=== PATIENT | male | born 1960 | race Caucasian/White ===

== ENCOUNTER → 2023-03-21 11:39 | Outpatient (REF) | payer OTHER, SELFPAY ==
[2023-03-21 12:19] LABS: % Basophils 4.6 % (0-2); % Eosinophils 2.7 % (0-6); % Immature Granulocytes 1.4 % (0-0.5); % Lymphocytes 19.3 % (20.5-51.1); % Monocytes 7.6 % (1.7-9.3); % Neutrophils 64.4 % (42.2-75.2); Absolute Basophils 0.2 10^3/uL (0-0.2); Absolute Eosinophils 0.1 10^3/uL (0-0.7); Absolute Immature Granulocytes 0.1 10^3/uL (0-0.05); Absolute Lymphocytes 0.7 10^3/uL (1.2-3.4); Absolute Monocytes 0.3 10^3/uL (0.1-0.6); Absolute Neutrophils 2.4 10^3/uL (1.4-6.5); Hematocrit 37.7 % (39.0-52.0); Mean Corp Hgb Conc. 37.1 g/dL (33.0-37.0); Mean Corpuscular Hgb 34.8 pg (27.0-31.0); Mean Corpuscular Volume 93.8 fL (80.0-94.0); Mean Platelet Volume 8.4 fL (7.4-10.4); Nucleated Red Blood Cells % 0 % (-); Platelet Count 184 10^3/uL (130-400); Red Blood Cell Count 4.02 10^6/uL (4.70-6.10); White Blood Cell Count 3.7 10^3/uL (4.8-10.8)
[2023-03-21 12:52] LABS: ALT (SGPT) 28 U/L (0-50); AST (SGOT) 31 U/L (17-59); Alkaline Phosphatase 81 U/L (38-126); Blood Urea Nitrogen 13 mg/dl (9-20); Calcium 9.5 mg/dl (8.4-10.2); Carbon Dioxide 28 mmol/L (22-30); Chloride 101 mmol/L (98-107); Glucose 122 mg/dl (70-99); Potassium 3.7 mmol/L (3.5-5.1); Sodium 137 mmol/L (135-145); Total Bilirubin 0.7 mg/dl (0.2-1.3); Total Protein 6.2 g/dl (6.3-8.2); eGFR > 60.00
[2023-03-23 01:36] LABS: IgG 816 mg/dl (700-1600)
[2023-03-23 02:41] LABS: IgA < 50 mg/dl (70-400); IgM < 25 mg/dl (40-230)
== END ==
LOC: REG 11:39
PROVIDERS: ATTENDING PHYSICIAN Internal Medicine; REFERRING PHYSICIAN Internal Medicine Hematology & Oncology
DX: B44.9 Aspergillosis, unspecified (principal); C82.98 Follicular lymphoma, unspecified, lymph nodes of multiple sites; D70.9 Neutropenia, unspecified; D83.8 Other common variable immunodeficiencies
CPT/HCPCS: 36415; 80053; 82784; 85025

== ENCOUNTER → 2023-04-18 11:27 | Outpatient (REF) | payer OTHER, SELFPAY ==
[2023-04-18 12:14] LABS: % Basophils 3.9 % (0-2); % Eosinophils 2.2 % (0-6); % Immature Granulocytes 1.7 % (0-0.5); % Lymphocytes 17.9 % (20.5-51.1); % Monocytes 8.1 % (1.7-9.3); % Neutrophils 66.2 % (42.2-75.2); Absolute Basophils 0.2 10^3/uL (0-0.2); Absolute Eosinophils 0.1 10^3/uL (0-0.7); Absolute Immature Granulocytes 0.1 10^3/uL (0-0.05); Absolute Lymphocytes 0.7 10^3/uL (1.2-3.4); Absolute Monocytes 0.3 10^3/uL (0.1-0.6); Absolute Neutrophils 2.7 10^3/uL (1.4-6.5); Hematocrit 36.8 % (39.0-52.0); Hemoglobin 13.6 g/dL (13.0-18.0); Mean Corpuscular Hgb 34.4 pg (27.0-31.0); Mean Corpuscular Volume 93.2 fL (80.0-94.0); Mean Platelet Volume 7.8 fL (7.4-10.4); Nucleated Red Blood Cells % 0 % (-); Platelet Count 169 10^3/uL (130-400); Red Blood Cell Count 3.95 10^6/uL (4.70-6.10); Red Cell Dist. Width 14.5 % (11.5-14.5); White Blood Cell Count 4.1 10^3/uL (4.8-10.8)
[2023-04-18 12:33] LABS: ALT (SGPT) 37 U/L (0-50); AST (SGOT) 32 U/L (17-59); Albumin 4.5 g/dl (3.5-5.0); Alkaline Phosphatase 91 U/L (38-126); Blood Urea Nitrogen 13 mg/dl (9-20); Calcium 9.4 mg/dl (8.4-10.2); Carbon Dioxide 25 mmol/L (22-30); Chloride 104 mmol/L (98-107); Glucose 111 mg/dl (70-99); LDH 193 U/L (120-246); Potassium 3.4 mmol/L (3.5-5.1); Sodium 136 mmol/L (135-145); Total Bilirubin 0.9 mg/dl (0.2-1.3); Total Protein 6.7 g/dl (6.3-8.2); eGFR > 60.00
[2023-04-20 10:48] LABS: IgG 808 mg/dl (700-1600)
[2023-04-22 11:16] LABS: IgA <2 mg/dL (68-408); IgM <10 mg/dL (35-263)
== END ==
LOC: REG 11:27
PROVIDERS: ATTENDING PHYSICIAN Internal Medicine Hematology & Oncology; FAMILY PHYSICIAN Family Medicine
DX: C82.98 Follicular lymphoma, unspecified, lymph nodes of multiple sites (principal); D70.9 Neutropenia, unspecified; D83.8 Other common variable immunodeficiencies
CPT/HCPCS: 36415; 80053; 82784; 83615; 85025

== ENCOUNTER → 2023-05-19 11:34 | Outpatient (REF) | payer OTHER, SELFPAY ==
[2023-05-19 13:34] LABS: % Basophils 5.9 % (0-2); % Eosinophils 4.4 % (0-6); % Immature Granulocytes 1.2 % (0-0.5); % Lymphocytes 21.1 % (20.5-51.1); % Monocytes 6.7 % (1.7-9.3); % Neutrophils 60.7 % (42.2-75.2); Absolute Basophils 0.2 10^3/uL (0-0.2); Absolute Eosinophils 0.2 10^3/uL (0-0.7); Absolute Lymphocytes 0.7 10^3/uL (1.2-3.4); Absolute Monocytes 0.2 10^3/uL (0.1-0.6); Absolute Neutrophils 2.1 10^3/uL (1.4-6.5); Hematocrit 34.8 % (39.0-52.0); Hemoglobin 12.9 g/dL (13.0-18.0); Mean Corp Hgb Conc. 37.1 g/dL (33.0-37.0); Mean Corpuscular Hgb 35.1 pg (27.0-31.0); Mean Corpuscular Volume 94.6 fL (80.0-94.0); Mean Platelet Volume 8.5 fL (7.4-10.4); Nucleated Red Blood Cells % 0 % (-); Platelet Count 195 10^3/uL (130-400); Red Blood Cell Count 3.68 10^6/uL (4.70-6.10); Red Cell Dist. Width 15.3 % (11.5-14.5); White Blood Cell Count 3.4 10^3/uL (4.8-10.8)
[2023-05-19 13:46] LABS: ALT (SGPT) 54 U/L (0-50); AST (SGOT) 100 U/L (17-59); Albumin 4.4 g/dl (3.5-5.0); Alkaline Phosphatase 264 U/L (38-126); Blood Urea Nitrogen 16 mg/dl (9-20); Calcium 9.3 mg/dl (8.4-10.2); Carbon Dioxide 17 mmol/L (22-30); Chloride 105 mmol/L (98-107); Glucose 94 mg/dl (70-99); LDH 284 U/L (120-246); Potassium 3.8 mmol/L (3.5-5.1); Sodium 135 mmol/L (135-145); Total Protein 6.6 g/dl (6.3-8.2); eGFR > 60.00
[2023-05-21 05:31] LABS: IgG 785 mg/dl (700-1600)
[2023-05-23 01:21] LABS: IgA <2 mg/dL (68-408); IgM <10 mg/dL (35-263)
== END ==
LOC: REG 11:34
PROVIDERS: ATTENDING PHYSICIAN Internal Medicine Hematology & Oncology; FAMILY PHYSICIAN Family Medicine; REFERRING PHYSICIAN Internal Medicine
DX: B49 Unspecified mycosis (principal); C82.98 Follicular lymphoma, unspecified, lymph nodes of multiple sites; D70.9 Neutropenia, unspecified; D83.8 Other common variable immunodeficiencies
CPT/HCPCS: 36415; 80053; 82784; 83615; 85025

== ENCOUNTER → 2023-06-16 12:11 | Outpatient (REF) | payer OTHER, SELFPAY ==
[2023-06-16 13:28] LABS: % Basophils 4.6 % (0-2); % Eosinophils 2.8 % (0-6); % Immature Granulocytes 0.9 % (0-0.5); % Lymphocytes 20.5 % (20.5-51.1); % Neutrophils 63.2 % (42.2-75.2); Absolute Basophils 0.2 10^3/uL (0-0.2); Absolute Eosinophils 0.1 10^3/uL (0-0.7); Absolute Lymphocytes 0.7 10^3/uL (1.2-3.4); Absolute Monocytes 0.3 10^3/uL (0.1-0.6); Absolute Neutrophils 2.1 10^3/uL (1.4-6.5); Hematocrit 37.5 % (39.0-52.0); Hemoglobin 13.1 g/dL (13.0-18.0); Mean Corp Hgb Conc. 34.9 g/dL (33.0-37.0); Mean Corpuscular Volume 100.3 fL (80.0-94.0); Mean Platelet Volume 8.3 fL (7.4-10.4); Nucleated Red Blood Cells % 0 % (-); Platelet Count 163 10^3/uL (130-400); Red Blood Cell Count 3.74 10^6/uL (4.70-6.10); Red Cell Dist. Width 13.3 % (11.5-14.5); White Blood Cell Count 3.3 10^3/uL (4.8-10.8)
[2023-06-16 14:01] LABS: ALT (SGPT) 26 U/L (0-50); AST (SGOT) 30 U/L (17-59); Albumin 4.2 g/dl (3.5-5.0); Alkaline Phosphatase 169 U/L (38-126); Blood Urea Nitrogen 17 mg/dl (9-20); Calcium 9.3 mg/dl (8.4-10.2); Carbon Dioxide 27 mmol/L (22-30); Chloride 104 mmol/L (98-107); Direct Bilirubin 0.3 mg/dl (0.0-0.4); Glucose 112 mg/dl (70-99); LDH 166 U/L (120-246); Potassium 3.5 mmol/L (3.5-5.1); Sodium 136 mmol/L (135-145); Total Bilirubin 0.5 mg/dl (0.2-1.3); Total Protein 6.4 g/dl (6.3-8.2); eGFR > 60.00
[2023-06-18 00:44] LABS: IgG 781 mg/dl (700-1600)
[2023-06-18 01:00] LABS: IgA < 50 mg/dl (70-400); IgM < 25 mg/dl (40-230)
== END ==
LOC: REG 12:11
PROVIDERS: ATTENDING PHYSICIAN Internal Medicine Hematology & Oncology; FAMILY PHYSICIAN Family Medicine; REFERRING PHYSICIAN Internal Medicine
DX: C82.98 Follicular lymphoma, unspecified, lymph nodes of multiple sites (principal); D70.9 Neutropenia, unspecified; D83.8 Other common variable immunodeficiencies
CPT/HCPCS: 36415; 80053; 82248; 82784; 83615; 85025

== ENCOUNTER → 2023-08-05 12:14 | Outpatient (REF) | payer OTHER, SELFPAY | LOC: RAD 12:14 | PROVIDERS: ATTENDING PHYSICIAN Surgery; FAMILY PHYSICIAN Family Medicine | DX: B49 Unspecified mycosis (principal); B44.0 Invasive pulmonary aspergillosis | CPT/HCPCS: 71250; 93005 ==

== ENCOUNTER → 2023-08-12 12:04 | Outpatient (REF) | payer OTHER, SELFPAY ==
[2023-08-12 13:28] LABS: % Basophils 3.4 % (0-2); % Lymphocytes 15.6 % (20.5-51.1); Absolute Basophils 0.1 10^3/uL (0-0.2); Absolute Eosinophils 0.1 10^3/uL (0-0.7); Absolute Lymphocytes 0.6 10^3/uL (1.2-3.4); Absolute Monocytes 0.4 10^3/uL (0.1-0.6); Absolute Neutrophils 2.8 10^3/uL (1.4-6.5); Hematocrit 37.8 % (39.0-52.0); Hemoglobin 13.6 g/dL (13.0-18.0); Mean Corpuscular Hgb 33.6 pg (27.0-31.0); Mean Corpuscular Volume 93.3 fL (80.0-94.0); Mean Platelet Volume 8.2 fL (7.4-10.4); Nucleated Red Blood Cells % 0 % (-); Platelet Count 165 10^3/uL (130-400); Red Blood Cell Count 4.05 10^6/uL (4.70-6.10); Red Cell Dist. Width 13.3 % (11.5-14.5); White Blood Cell Count 4.1 10^3/uL (4.8-10.8)
[2023-08-12 14:01] LABS: ALT (SGPT) 17 U/L (0-50); AST (SGOT) 26 U/L (17-59); Albumin 4.4 g/dl (3.5-5.0); Alkaline Phosphatase 181 U/L (38-126); Blood Urea Nitrogen 15 mg/dl (9-20); Calcium 9.4 mg/dl (8.4-10.2); Carbon Dioxide 27 mmol/L (22-30); Chloride 102 mmol/L (98-107); Glucose 107 mg/dl (70-99); LDH 163 U/L (120-246); Potassium 3.5 mmol/L (3.5-5.1); Sodium 137 mmol/L (135-145); Total Protein 6.6 g/dl (6.3-8.2); eGFR > 60.00
[2023-08-13 05:25] LABS: IgG 805 mg/dl (700-1600)
[2023-08-14 14:27] LABS: IgA <2 mg/dL (68-408); IgM 11 mg/dL (35-263)
== END ==
LOC: REG 12:04
PROVIDERS: ATTENDING PHYSICIAN Internal Medicine Hematology & Oncology; FAMILY PHYSICIAN Family Medicine
DX: C82.98 Follicular lymphoma, unspecified, lymph nodes of multiple sites (principal); D70.9 Neutropenia, unspecified; D83.8 Other common variable immunodeficiencies
CPT/HCPCS: 36415; 80053; 82784; 83615; 85025

== ENCOUNTER → 2023-09-09 12:19 | Outpatient (REF) | payer OTHER, SELFPAY ==
[2023-09-09 13:42] LABS: ALT (SGPT) 17 U/L (0-50); AST (SGOT) 23 U/L (17-59); Albumin 4.2 g/dl (3.5-5.0); Alkaline Phosphatase 110 U/L (38-126); Blood Urea Nitrogen 16 mg/dl (9-20); Calcium 9.2 mg/dl (8.4-10.2); Carbon Dioxide 26 mmol/L (22-30); Chloride 103 mmol/L (98-107); Glucose 117 mg/dl (70-99); LDH 158 U/L (120-246); Potassium 3.3 mmol/L (3.5-5.1); Sodium 138 mmol/L (135-145); Total Bilirubin 0.9 mg/dl (0.2-1.3); Total Protein 6.2 g/dl (6.3-8.2); eGFR > 60.00
[2023-09-09 13:45] LABS: % Basophils 3.1 % (0-2); % Eosinophils 2.8 % (0-6); % Immature Granulocytes 0.6 % (0-0.5); % Lymphocytes 17.8 % (20.5-51.1); % Monocytes 7.4 % (1.7-9.3); % Neutrophils 68.3 % (42.2-75.2); Absolute Basophils 0.1 10^3/uL (0-0.2); Absolute Eosinophils 0.1 10^3/uL (0-0.7); Absolute Lymphocytes 0.6 10^3/uL (1.2-3.4); Absolute Monocytes 0.2 10^3/uL (0.1-0.6); Absolute Neutrophils 2.2 10^3/uL (1.4-6.5); Hematocrit 36.9 % (39.0-52.0); Hemoglobin 13.5 g/dL (13.0-18.0); Mean Corp Hgb Conc. 36.6 g/dL (33.0-37.0); Mean Corpuscular Hgb 33.7 pg (27.0-31.0); Mean Platelet Volume 8.6 fL (7.4-10.4); Nucleated Red Blood Cells % 0 % (-); Platelet Count 146 10^3/uL (130-400); Red Blood Cell Count 4.01 10^6/uL (4.70-6.10); Red Cell Dist. Width 14.2 % (11.5-14.5); White Blood Cell Count 3.3 10^3/uL (4.8-10.8)
[2023-09-10 00:26] LABS: IgG 789 mg/dl (700-1600)
[2023-09-10 00:31] LABS: IgA < 50 mg/dl (70-400); IgM < 25 mg/dl (40-230)
== END ==
LOC: REG 12:19
PROVIDERS: ATTENDING PHYSICIAN Internal Medicine Hematology & Oncology; FAMILY PHYSICIAN Family Medicine
DX: C82.98 Follicular lymphoma, unspecified, lymph nodes of multiple sites (principal); D70.9 Neutropenia, unspecified; D83.8 Other common variable immunodeficiencies
CPT/HCPCS: 36415; 80053; 82784; 83615; 85025

== ENCOUNTER 2023-11-19 06:21 | Day surgery (SDC) | payer OTHER, SELFPAY ==
[2023-10-29 13:23] VITALS: BMI 25.4
[2023-10-29 14:50] LABS: Hemoglobin 12.9 g/dL (13.0-18.0); Mean Corp Hgb Conc. 36.9 g/dL (33.0-37.0); Mean Corpuscular Hgb 34.8 pg (27.0-31.0); Mean Corpuscular Volume 94.3 fL (80.0-94.0); Mean Platelet Volume 8.2 fL (7.4-10.4); Platelet Count 132 10^3/uL (130-400); Red Blood Cell Count 3.71 10^6/uL (4.70-6.10); Red Cell Dist. Width 15.2 % (11.5-14.5); White Blood Cell Count 2.8 10^3/uL (4.8-10.8)
[2023-10-29 15:03] LABS: ALT (SGPT) 28 U/L (0-50); AST (SGOT) 30 U/L (17-59); Albumin 4.2 g/dl (3.5-5.0); Alkaline Phosphatase 92 U/L (38-126); Blood Urea Nitrogen 11 mg/dl (9-20); Calcium 9.3 mg/dl (8.4-10.2); Carbon Dioxide 26 mmol/L (22-30); Chloride 102 mmol/L (98-107); Estimated Creatinine Clearance 79 ml/min; Glucose 103 mg/dl (70-99); Potassium 3.6 mmol/L (3.5-5.1); Sodium 139 mmol/L (135-145); Total Bilirubin 0.8 mg/dl (0.2-1.3); Total Protein 6.5 g/dl (6.3-8.2); eGFR > 60.00
[2023-10-30 09:40] LABS: Glycohemoglobin (HgbA1c) 4.5 % (4.0-5.6)
--- NOTE | 2023-11-06 12:47 | VNURNOTE ---
Patient is scheduled for an elective L LAKEISHA 11/19/23- he is a same day patient. Spoke with patient prior to surgery. Introduced role of [facility] liaison.
Patient reports that he lives with significant other in a 1 story home.
There are 2 steps to enter.
DME he has: cane, raised toilet seat
DME he's ordering: hip kit, rolling walker, DVT machine
He currently uses a single point cane.
PCP is Harriet Root
Discussed orthopedic program and post surgical plans.
Patient declining [facility]. He has outpt PT at [facility] scheduled Mon 11/22. Offered [facility] PT, SN visits per joint protocol. Patient declined stating he has done exercises before and feels he can do on his own until outpt PT starts.
Significant other Shari will be home with him and can help.
After call, liaison spoke with Zabrina Santos at Ortho, made aware of pt declining home PT, SN.
Plan: Outpt PT
[2023-11-16 11:55] VITALS: BMI 25.4
--- NOTE | 2023-11-16 12:00 | PTCARENOTE ---
Zabrina in Dr. Lopez's office made aware of WBC's 2.8 from 10/29/23.
[2023-11-19] VITALS (12 sets, daily range): BP systolic 107–138; BP diastolic 56–95; BMI 25.4
[2023-11-19] MEDS: NORMOSOL-R/PLASMALYTE-A 1000 IV (11:43)
[2023-11-19] MEDS: CELEBREX 200 MG PO (11:43)
[2023-11-19] MEDS: TYLENOL 650 MG PO (11:43)
[2023-11-19] MEDS: ANCEF 5 IV (17:31)
--- NOTE | 2023-11-19 17:55 | OR.RPT ---
Operative Report
Operative Report
Orthopaedic Surgery Operative Note
DATE OF OPERATION: 11/19/2023
PREOPERATIVE DIAGNOSES: Osteoarthritis, left hip
POSTOPERATIVE DIAGNOSES: Same
OPERATION PERFORMED: Left total hip arthroplasty.
SURGEON: Christiano Lopez MD
TEXTILE SCIENCE TECHNICIAN: Lencho Garnica PA-C who helped with patient and limb positioning and retraction
ANESTHESIA: Spinal
COMPLICATIONS: None.
ESTIMATED BLOOD LOSS: 50 mL.
DRAINS: None
SPECIMEN: None
FINDINGS: Advanced articular cartilage wear on the femoral head and acetabulum. Extensive osteophytes on femoral head and acetabulum
IMPLANTS:
Ghanshyam Trilogy Acetabular Shell, cluster hole, size 56
Ghanshyam Trilogy Highly Crosslinked PE Liner, neutral
Ghanshyam M/L Taper femoral stem, size 11 with standard neck length and standard offset
Biolox Ceramic Head, size 36mm +0
INDICATIONS: The patient presented to my office with debilitating left hip pain due to osteoarthritis. We reviewed the natural history of this problem, as well as the risks, benefits, and alternatives of various treatment options. The patient
exhausted all nonoperative treatment options and wished to proceed with hip replacement surgery. The patient understood the risks which included, but were not limited to, bleeding, infection, failure to relieve pain, more pain than preop, damage to
blood vessels and nerves, need for reoperation, mechanical failure of the implants, wound healing problems, stiffness, instability, blood clot, pulmonary embolism, myocardial infarction, pneumonia, arrhythmia, CVA, and . The patient accepted
these risks and wished to proceed. All questions were answered, and informed consent was obtained.
PROCEDURE IN DETAIL: The patient was identified in the preoperative holding area. The left hip was identified as the operative site. The patient was taken in the operating room and transferred to the operative table. Spinal anesthesia was performed.
IV antibiotics and tranexamic acid were administered. The patient was placed in the lateral position with Stulberg hip positioners. Axillary roll was placed. The down leg was well padded. All bony prominences were well padded. The operative limb was
prepped and draped in the usual sterile fashion.
Time out was performed. A posterolateral approach to the hip was used. The skin incision was centered over the greater trochanter. This was taken down sharply through subcutaneous tissues. Meticulous hemostasis was achieved throughout the case with
electrocautery. We split the fascia real in line with skin incision. I split the gluteus jimbo bluntly. We cauterized all crossing vessels as we split it. I palpated the sciatic nerve and made sure it was well posterior in the operative field. It
was protected throughout the case.
I performed a partial bursectomy to identify the short external rotators. The gluteus medius and minimus were identified and retracted anteriorly. I incised the piriformis tendon and conjoint tendon at their insertions. These were tagged for later
repair. I then performed a trapezoidal capsulotomy. The edges were tagged for later repair. I referenced the cut edge of the capsular flap to 2 fixed points on the greater trochanter for assistance with recreation of limb length and offset. I then
dislocated the hip posteriorly. I performed a femoral neck osteotomy approximately 5 mm above the lesser trochanter, as per preoperative templating. The femoral head measured 53 mm in outer diameter. The distance between the neck cut and center of
the femoral head was measured to be 40mm. I placed a curve hohmann retractor over the anterior lip of the acetabulum between the labrum and the anterior hip capsule. A second retractor was placed inferiorly just distal to the transverse acetabular
ligament. Circumferential view of the acetabulum was achieved. Extensive osteophytes were removed from the acetabulum. I incised the labrum and pulvinar with electrocautery. I started with a 53mm reamer and reamed medially. I then sequentially
reamed up to a 55mm reamer. This gave a nice bed of bleeding bone with excellent column support anteriorly and posteriorly. I impacted the acetabular shell in approximately 40 degrees of abduction and 20 degrees of anteversion. I matched the
anteversion of the transverse acetabular ligament. I also made sure that the anterior rim of the socket was not proud of the anterior wall to minimize the chance of iliopsoas tendinitis. I confirmed the cup was well-seated. I then impacted a neutral
liner and confirmed it was well seated with the locking mechanism.
On the femoral side, I use a box osteotome to open the proximal starting point. I found the canal with a Charnley awl and a lateralizing reamer. I then used the Ghanshyam M/L taper broaches sequentially to prepare the femoral canal. The size 11 came to
a stop at the desired level and had excellent axial and rotational stability. We trialed with a trial ball head. The hip was taken through a complete range of motion. It was noted to be stable in extension without impingement. It was stable in the
position of sleep and in flexion with internal rotation. The limb length and offset were checked compared to the capsular flap and was appropriate. The measured length between the lesser trochanter and center of the femoral head was 40mm. All
impinging osteophytes were removed from femur and acetabulum.
I removed the trials. I impacted the femoral implant to match the nondalton version. It had excellent axial and rotational stability. Trial ball head was placed, and I reduced the hip and took the hip through a complete range of motion. There was no
impingement in external rotation and extension. Position of sleep was stable. At 90 degrees of flexion and slight adduction, the hip could be internally rotated to 90 degrees with no subluxation. I palpated the sciatic nerve, which was tension free
and unharmed. Based on our capsular flap measurement, we had restored the offset and leg length. The trial ball head was removed, and the final ball head was impacted onto a clean and dry Baez taper. The hip was reduced.
A dilute betadine soak was performed for approximately 3 minutes, and then the hip was copiously irrigated. I repaired the capsule, piriformis, and conjoint tendon with #2 Ethibond to drill holes in the greater trochanter. Local anesthetic was
injected. The fascia real was closed with #1 PDS in running fashion. The subcutaneous tissues were closed with 2-0 PDS in running fashion. The skin was reapproximated with 3-0 Monocryl subcuticular suture. I placed a Prineo dressing followed by a
Mepilex Ag dressing. The patient awoke from anesthesia without difficulty. Sponge and instrument counts were correct x2 at the end of the case.
I was present and participated in the entire procedure. I checked leg length at the ankles after transfer on the bed which was equal. The patient was sent to the recovery room in stable condition.
Pedro Lopez MD
--- NOTE | 2023-11-19 18:02 | PTCARENOTE ---
Had pt sit bedside and assisted pt to dress. Tolerated well. Pt stood, put some weight on left leg, stated it still felt 'funny'. Was able to flex knee. Had pt sit back down, sitting on side of stretcher. Pt's SO with pt. Setting up therapy for pt.
== END 2023-11-19 19:08 | disposition home or self-care (01) ==
LOC: SDS 06:21
PROVIDERS: ATTENDING PHYSICIAN Orthopaedic Surgery; FAMILY PHYSICIAN Family Medicine; OTHER PHYSICIAN Internal Medicine
DX: M16.12 Unilateral primary osteoarthritis, left hip (principal); M25.752 Osteophyte, left hip
CPT/HCPCS: 27130; 36415; 73502; 80053; 83036; 85027; 87070; 97163; C1776

== ENCOUNTER → 2023-11-25 11:47 | Outpatient (REF) | payer OTHER, SELFPAY ==
[2023-11-25 12:28] LABS: Hematocrit 32.9 % (39.0-52.0); Hemoglobin 11.7 g/dL (13.0-18.0); Mean Corp Hgb Conc. 35.6 g/dL (33.0-37.0); Mean Corpuscular Hgb 34.1 pg (27.0-31.0); Mean Corpuscular Volume 95.9 fL (80.0-94.0); Mean Platelet Volume 8.2 fL (7.4-10.4); Platelet Count 137 10^3/uL (130-400); Red Blood Cell Count 3.43 10^6/uL (4.70-6.10); Red Cell Dist. Width 14.2 % (11.5-14.5); White Blood Cell Count 3.3 10^3/uL (4.8-10.8)
[2023-11-25 12:49] LABS: ALT (SGPT) 23 U/L (0-50); AST (SGOT) 23 U/L (17-59); Albumin 3.4 g/dl (3.5-5.0); Alkaline Phosphatase 76 U/L (38-126); Blood Urea Nitrogen 26 mg/dl (9-20); Calcium 8.6 mg/dl (8.4-10.2); Carbon Dioxide 28 mmol/L (22-30); Chloride 103 mmol/L (98-107); Glucose 101 mg/dl (70-99); LDH 173 U/L (120-246); Potassium 3.5 mmol/L (3.5-5.1); Sodium 138 mmol/L (135-145); Total Bilirubin 0.6 mg/dl (0.2-1.3); Total Protein 5.3 g/dl (6.3-8.2); eGFR > 60.00
[2023-11-25 12:56] LABS: % Basophils 1.5 % (0-2); % Eosinophils 1.8 % (0-6); % Immature Granulocytes 5.8 % (0-0.5); % Lymphocytes 13.8 % (20.5-51.1); % Neutrophils 69.1 % (42.2-75.2); Absolute Basophils 0.1 10^3/uL (0-0.2); Absolute Eosinophils 0.1 10^3/uL (0-0.7); Absolute Immature Granulocytes 0.2 10^3/uL (0-0.05); Absolute Lymphocytes 0.5 10^3/uL (1.2-3.4); Absolute Monocytes 0.3 10^3/uL (0.1-0.6); Absolute Neutrophils 2.3 10^3/uL (1.4-6.5); Nucleated Red Blood Cells % 0 % (-)
[2023-11-26 06:40] LABS: IgG 499 mg/dl (700-1600)
[2023-11-28 01:44] LABS: IgA <2 mg/dL (68-408); IgM <10 mg/dL (35-263)
== END ==
LOC: REG 11:47
PROVIDERS: ATTENDING PHYSICIAN Internal Medicine Hematology & Oncology; FAMILY PHYSICIAN Family Medicine
DX: C82.98 Follicular lymphoma, unspecified, lymph nodes of multiple sites (principal); D70.9 Neutropenia, unspecified; D83.8 Other common variable immunodeficiencies
CPT/HCPCS: 36415; 80053; 82784; 83615; 85025

== ENCOUNTER → 2023-12-17 12:14 | Outpatient (REF) | payer OTHER, SELFPAY ==
[2023-12-17 16:01] LABS: % Basophils 3.4 % (0-2); % Eosinophils 2.1 % (0-6); % Immature Granulocytes 1.6 % (0-0.5); % Lymphocytes 16.4 % (20.5-51.1); % Monocytes 6.1 % (1.7-9.3); % Neutrophils 70.4 % (42.2-75.2); Absolute Basophils 0.1 10^3/uL (0-0.2); Absolute Eosinophils 0.1 10^3/uL (0-0.7); Absolute Immature Granulocytes 0.1 10^3/uL (0-0.05); Absolute Lymphocytes 0.6 10^3/uL (1.2-3.4); Absolute Monocytes 0.2 10^3/uL (0.1-0.6); Absolute Neutrophils 2.7 10^3/uL (1.4-6.5); Hematocrit 36.9 % (39.0-52.0); Hemoglobin 13.3 g/dL (13.0-18.0); Mean Corpuscular Hgb 35.9 pg (27.0-31.0); Mean Corpuscular Volume 99.7 fL (80.0-94.0); Mean Platelet Volume 8.4 fL (7.4-10.4); Nucleated Red Blood Cells % 0 % (-); Platelet Count 138 10^3/uL (130-400); Red Cell Dist. Width 15.9 % (11.5-14.5); White Blood Cell Count 3.8 10^3/uL (4.8-10.8)
[2023-12-17 16:10] LABS: ALT (SGPT) 17 U/L (0-50); AST (SGOT) 21 U/L (17-59); Albumin 4.3 g/dl (3.5-5.0); Alkaline Phosphatase 108 U/L (38-126); Blood Urea Nitrogen 16 mg/dl (9-20); Calcium 9.4 mg/dl (8.4-10.2); Carbon Dioxide 25 mmol/L (22-30); Chloride 101 mmol/L (98-107); Glucose 112 mg/dl (70-99); LDH 220 U/L (120-246); Potassium 4.1 mmol/L (3.5-5.1); Sodium 136 mmol/L (135-145); Total Bilirubin 0.8 mg/dl (0.2-1.3); Total Protein 6.4 g/dl (6.3-8.2); eGFR > 60.00
[2023-12-17 16:20] LABS: IgG 780 mg/dl (700-1600)
[2023-12-19 19:58] LABS: IgA <2 mg/dL (68-408); IgM 13 mg/dL (35-263)
== END ==
LOC: HWRAD 12:14
PROVIDERS: ATTENDING PHYSICIAN Internal Medicine; FAMILY PHYSICIAN Family Medicine; REFERRING PHYSICIAN Internal Medicine Hematology & Oncology
DX: B44.0 Invasive pulmonary aspergillosis (principal); C82.98 Follicular lymphoma, unspecified, lymph nodes of multiple sites; D70.9 Neutropenia, unspecified; D83.8 Other common variable immunodeficiencies
CPT/HCPCS: 36415; 71250; 80053; 82784; 83615; 85025

== ENCOUNTER → 2024-01-19 11:21 | Outpatient (REF) | payer OTHER, SELFPAY ==
[2024-01-19 12:48] LABS: % Basophils 3.2 % (0-2); % Eosinophils 2.7 % (0-6); % Immature Granulocytes 0.8 % (0-0.5); % Lymphocytes 15.9 % (20.5-51.1); % Monocytes 7.3 % (1.7-9.3); % Neutrophils 70.1 % (42.2-75.2); Absolute Basophils 0.1 10^3/uL (0-0.2); Absolute Eosinophils 0.1 10^3/uL (0-0.7); Absolute Lymphocytes 0.6 10^3/uL (1.2-3.4); Absolute Monocytes 0.3 10^3/uL (0.1-0.6); Absolute Neutrophils 2.6 10^3/uL (1.4-6.5); Hematocrit 39.7 % (39.0-52.0); Hemoglobin 13.7 g/dL (13.0-18.0); Mean Corp Hgb Conc. 34.5 g/dL (33.0-37.0); Mean Corpuscular Hgb 34.9 pg (27.0-31.0); Mean Platelet Volume 8.3 fL (7.4-10.4); Nucleated Red Blood Cells % 0 % (-); Platelet Count 151 10^3/uL (130-400); Red Blood Cell Count 3.93 10^6/uL (4.70-6.10); Red Cell Dist. Width 13.5 % (11.5-14.5); White Blood Cell Count 3.7 10^3/uL (4.8-10.8)
[2024-01-19 13:21] LABS: ALT (SGPT) 19 U/L (0-50); AST (SGOT) 20 U/L (17-59); Albumin 4.4 g/dl (3.5-5.0); Alkaline Phosphatase 93 U/L (38-126); Blood Urea Nitrogen 14 mg/dl (9-20); Calcium 9.2 mg/dl (8.4-10.2); Carbon Dioxide 27 mmol/L (22-30); Chloride 101 mmol/L (98-107); Glucose 111 mg/dl (70-99); LDH 194 U/L (120-246); Potassium 3.3 mmol/L (3.5-5.1); Sodium 139 mmol/L (135-145); Total Bilirubin 0.8 mg/dl (0.2-1.3); Total Protein 6.2 g/dl (6.3-8.2); eGFR > 60.00
[2024-01-21 00:30] LABS: IgG 728 mg/dl (700-1600)
== END ==
LOC: REG 11:21
PROVIDERS: ATTENDING PHYSICIAN Internal Medicine Hematology & Oncology; FAMILY PHYSICIAN Family Medicine
DX: C82.98 Follicular lymphoma, unspecified, lymph nodes of multiple sites (principal); D70.9 Neutropenia, unspecified; D83.8 Other common variable immunodeficiencies
CPT/HCPCS: 36415; 80053; 82784; 83615; 85025

== ENCOUNTER → 2024-02-15 11:48 | Outpatient (REF) | payer OTHER, SELFPAY ==
[2024-02-15 13:04] LABS: % Basophils 3.4 % (0-2); % Eosinophils 2.3 % (0-6); % Immature Granulocytes 0.7 % (0-0.5); % Lymphocytes 15.3 % (20.5-51.1); % Monocytes 7.2 % (1.7-9.3); % Neutrophils 71.1 % (42.2-75.2); Absolute Basophils 0.2 10^3/uL (0-0.2); Absolute Eosinophils 0.1 10^3/uL (0-0.7); Absolute Lymphocytes 0.7 10^3/uL (1.2-3.4); Absolute Monocytes 0.3 10^3/uL (0.1-0.6); Absolute Neutrophils 3.2 10^3/uL (1.4-6.5); Hematocrit 38.6 % (39.0-52.0); Hemoglobin 13.9 g/dL (13.0-18.0); Mean Corpuscular Hgb 34.8 pg (27.0-31.0); Mean Corpuscular Volume 96.5 fL (80.0-94.0); Mean Platelet Volume 8.1 fL (7.4-10.4); Nucleated Red Blood Cells % 0 % (-); Platelet Count 155 10^3/uL (130-400); Red Cell Dist. Width 13.4 % (11.5-14.5); White Blood Cell Count 4.4 10^3/uL (4.8-10.8)
[2024-02-15 13:38] LABS: ALT (SGPT) 17 U/L (0-50); AST (SGOT) 19 U/L (17-59); Albumin 3.9 g/dl (3.5-5.0); Alkaline Phosphatase 90 U/L (38-126); Blood Urea Nitrogen 14 mg/dl (9-20); Calcium 9.1 mg/dl (8.4-10.2); Carbon Dioxide 27 mmol/L (22-30); Chloride 100 mmol/L (98-107); Glucose 111 mg/dl (70-99); LDH 180 U/L (120-246); Potassium 3.5 mmol/L (3.5-5.1); Sodium 136 mmol/L (135-145); Total Bilirubin 0.8 mg/dl (0.2-1.3); eGFR > 60.00
[2024-02-15 13:49] LABS: IgG 708 mg/dl (700-1600)
[2024-02-18 03:02] LABS: IgA <2 mg/dL (68-408); IgM 14 mg/dL (35-263)
== END ==
LOC: REG 11:48
PROVIDERS: ATTENDING PHYSICIAN Internal Medicine Hematology & Oncology; FAMILY PHYSICIAN Family Medicine
DX: C82.98 Follicular lymphoma, unspecified, lymph nodes of multiple sites (principal); D70.9 Neutropenia, unspecified; D83.8 Other common variable immunodeficiencies
CPT/HCPCS: 36415; 80053; 82784; 83615; 85025

== ENCOUNTER → 2024-03-23 12:44 | Outpatient (REF) | payer OTHER, SELFPAY ==
[2024-03-23 13:50] LABS: % Basophils 3.6 % (0-2); % Eosinophils 2.4 % (0-6); % Immature Granulocytes 1.2 % (0-0.5); % Monocytes 6.3 % (1.7-9.3); % Neutrophils 67.5 % (42.2-75.2); Absolute Basophils 0.2 10^3/uL (0-0.2); Absolute Eosinophils 0.1 10^3/uL (0-0.7); Absolute Immature Granulocytes 0.1 10^3/uL (0-0.05); Absolute Lymphocytes 0.8 10^3/uL (1.2-3.4); Absolute Monocytes 0.3 10^3/uL (0.1-0.6); Absolute Neutrophils 2.8 10^3/uL (1.4-6.5); Hematocrit 36.6 % (39.0-52.0); Hemoglobin 13.1 g/dL (13.0-18.0); Mean Corp Hgb Conc. 35.8 g/dL (33.0-37.0); Mean Corpuscular Hgb 33.8 pg (27.0-31.0); Mean Corpuscular Volume 94.3 fL (80.0-94.0); Mean Platelet Volume 8.2 fL (7.4-10.4); Nucleated Red Blood Cells % 0 % (-); Platelet Count 182 10^3/uL (130-400); Red Blood Cell Count 3.88 10^6/uL (4.70-6.10); Red Cell Dist. Width 13.2 % (11.5-14.5); White Blood Cell Count 4.1 10^3/uL (4.8-10.8)
[2024-03-23 15:39] LABS: ALT (SGPT) 40 U/L (0-50); AST (SGOT) 44 U/L (17-59); Albumin 4.1 g/dl (3.5-5.0); Alkaline Phosphatase 200 U/L (38-126); Blood Urea Nitrogen 20 mg/dl (9-20); Calcium 9.3 mg/dl (8.4-10.2); Carbon Dioxide 30 mmol/L (22-30); Chloride 97 mmol/L (98-107); Glucose 95 mg/dl (70-99); Potassium 3.3 mmol/L (3.5-5.1); Sodium 138 mmol/L (135-145); Total Protein 6.2 g/dl (6.3-8.2); eGFR > 60.00
[2024-03-23 17:44] LABS: LDH 237 U/L (120-246)
[2024-03-23 23:35] LABS: IgG 655 mg/dl (700-1600)
== END ==
LOC: REG 12:44
PROVIDERS: ATTENDING PHYSICIAN Internal Medicine Hematology & Oncology; FAMILY PHYSICIAN Family Medicine
DX: C82.98 Follicular lymphoma, unspecified, lymph nodes of multiple sites (principal); D70.9 Neutropenia, unspecified; D83.8 Other common variable immunodeficiencies
CPT/HCPCS: 36415; 80053; 82784; 83615; 85025

== ENCOUNTER → 2024-04-21 12:15 | Outpatient (REF) | payer OTHER, SELFPAY ==
[2024-04-21 13:32] LABS: % Basophils 4.7 % (0-2); % Eosinophils 2.8 % (0-6); % Immature Granulocytes 1.7 % (0-0.5); % Lymphocytes 15.7 % (20.5-51.1); % Monocytes 6.9 % (1.7-9.3); % Neutrophils 68.2 % (42.2-75.2); Absolute Basophils 0.2 10^3/uL (0-0.2); Absolute Eosinophils 0.1 10^3/uL (0-0.7); Absolute Immature Granulocytes 0.1 10^3/uL (0-0.05); Absolute Lymphocytes 0.6 10^3/uL (1.2-3.4); Absolute Monocytes 0.3 10^3/uL (0.1-0.6); Absolute Neutrophils 2.5 10^3/uL (1.4-6.5); Hematocrit 36.8 % (39.0-52.0); Mean Corp Hgb Conc. 35.3 g/dL (33.0-37.0); Mean Corpuscular Hgb 33.7 pg (27.0-31.0); Mean Corpuscular Volume 95.3 fL (80.0-94.0); Mean Platelet Volume 8.2 fL (7.4-10.4); Nucleated Red Blood Cells % 0 % (-); Platelet Count 138 10^3/uL (130-400); Red Blood Cell Count 3.86 10^6/uL (4.70-6.10); Red Cell Dist. Width 14.4 % (11.5-14.5); White Blood Cell Count 3.6 10^3/uL (4.8-10.8)
[2024-04-21 14:05] LABS: ALT (SGPT) 23 U/L (0-50); AST (SGOT) 27 U/L (17-59); Albumin 3.9 g/dl (3.5-5.0); Alkaline Phosphatase 116 U/L (38-126); Blood Urea Nitrogen 19 mg/dl (9-20); Calcium 9.5 mg/dl (8.4-10.2); Carbon Dioxide 28 mmol/L (22-30); Chloride 100 mmol/L (98-107); Glucose 106 mg/dl (70-99); LDH 187 U/L (120-246); Potassium 3.6 mmol/L (3.5-5.1); Sodium 136 mmol/L (135-145); Total Protein 5.9 g/dl (6.3-8.2); eGFR > 60.00
[2024-04-21 14:11] LABS: IgG 685 mg/dl (700-1600)
[2024-04-21 14:14] LABS: IgA < 40 mg/dl (70-400); IgM < 25 mg/dl (40-230)
== END ==
LOC: REG 12:15
PROVIDERS: ATTENDING PHYSICIAN Internal Medicine Hematology & Oncology; FAMILY PHYSICIAN Family Medicine
DX: C82.98 Follicular lymphoma, unspecified, lymph nodes of multiple sites (principal); D70.9 Neutropenia, unspecified; D83.8 Other common variable immunodeficiencies
CPT/HCPCS: 36415; 80053; 82784; 83615; 85025

== ENCOUNTER → 2024-04-26 12:43 | Outpatient (REF) | payer OTHER, SELFPAY ==
[2024-04-26 13:18] VITALS: BP 118/77; BP_SYST 64
[2024-04-26 13:45] VITALS: BP 117/76
== END ==
LOC: RADI 12:43
PROVIDERS: ATTENDING PHYSICIAN Internal Medicine Hematology & Oncology; FAMILY PHYSICIAN Family Medicine
DX: C82.05 Follicular lymphoma grade I, lymph nodes of inguinal region and lower limb (principal)
CPT/HCPCS: 88305; 38505; 76942; 88333; 88341; 88342

== ENCOUNTER → 2024-05-16 10:30 | Outpatient (REF) | payer OTHER, SELFPAY ==
[2024-05-16 11:55] LABS: % Basophils 3.2 % (0-2); % Eosinophils 2.6 % (0-6); % Immature Granulocytes 1.7 % (0-0.5); % Monocytes 6.9 % (1.7-9.3); % Neutrophils 73.6 % (42.2-75.2); Absolute Basophils 0.1 10^3/uL (0-0.2); Absolute Eosinophils 0.1 10^3/uL (0-0.7); Absolute Immature Granulocytes 0.1 10^3/uL (0-0.05); Absolute Lymphocytes 0.4 10^3/uL (1.2-3.4); Absolute Monocytes 0.2 10^3/uL (0.1-0.6); Absolute Neutrophils 2.6 10^3/uL (1.4-6.5); Hematocrit 36.7 % (39.0-52.0); Hemoglobin 12.9 g/dL (13.0-18.0); Mean Corp Hgb Conc. 35.1 g/dL (33.0-37.0); Mean Corpuscular Volume 96.8 fL (80.0-94.0); Nucleated Red Blood Cells % 0 % (-); Platelet Count 166 10^3/uL (130-400); Red Blood Cell Count 3.79 10^6/uL (4.70-6.10); Red Cell Dist. Width 15.2 % (11.5-14.5); White Blood Cell Count 3.5 10^3/uL (4.8-10.8)
[2024-05-16 12:36] LABS: ALT (SGPT) 14 U/L (0-50); AST (SGOT) 18 U/L (17-59); Albumin 3.8 g/dl (3.5-5.0); Alkaline Phosphatase 115 U/L (38-126); Blood Urea Nitrogen 18 mg/dl (9-20); Calcium 9.2 mg/dl (8.4-10.2); Carbon Dioxide 28 mmol/L (22-30); Chloride 104 mmol/L (98-107); Glucose 110 mg/dl (70-99); LDH 192 U/L (120-246); Potassium 3.6 mmol/L (3.5-5.1); Sodium 140 mmol/L (135-145); eGFR > 60.00
[2024-05-16 12:54] LABS: IgG 735 mg/dl (700-1600)
[2024-05-16 19:59] LABS: Hepatitis B Surface Antigen Negative (Negative)
[2024-05-16 20:16] LABS: Hepatitis B Surface Antibody Positive
[2024-05-17 15:04] LABS: Hepatitis B Core Ab, Total Negative (Negative)
[2024-05-18 11:12] LABS: IgA <2 mg/dL (68-408); IgM 17 mg/dL (35-263)
== END ==
LOC: RCS 10:30
PROVIDERS: ATTENDING PHYSICIAN Internal Medicine; FAMILY PHYSICIAN Family Medicine; OTHER PHYSICIAN Internal Medicine Hematology & Oncology
DX: I10 Essential (primary) hypertension (principal); I25.10 Atherosclerotic heart disease of native coronary artery without angina pectoris; I49.3 Ventricular premature depolarization; C82.98 Follicular lymphoma, unspecified, lymph nodes of multiple sites; D70.9 Neutropenia, unspecified; D83.8 Other common variable immunodeficiencies
CPT/HCPCS: 36415; 80053; 82784; 83615; 85025; 86704; 86706; 87340; 93306

== ENCOUNTER → 2024-05-26 12:19 | Outpatient (REF) | payer OTHER, SELFPAY ==
[2024-05-26 14:13] LABS: Blood Urea Nitrogen 16 mg/dl (9-20); Calcium 9.2 mg/dl (8.4-10.2); Carbon Dioxide 27 mmol/L (22-30); Chloride 103 mmol/L (98-107); Glucose 103 mg/dl (70-99); Potassium 3.6 mmol/L (3.5-5.1); Sodium 138 mmol/L (135-145); eGFR > 60.00
[2024-05-26 14:44] LABS: Uric Acid 8.9 mg/dl (3.5-8.5)
== END ==
LOC: REG 12:19
PROVIDERS: ATTENDING PHYSICIAN Registered Nurse; FAMILY PHYSICIAN Family Medicine; REFERRING PHYSICIAN Internal Medicine Hematology & Oncology
DX: C82.98 Follicular lymphoma, unspecified, lymph nodes of multiple sites (principal); D70.9 Neutropenia, unspecified; D83.8 Other common variable immunodeficiencies
CPT/HCPCS: 36415; 80048; 84550

== ENCOUNTER 2024-06-27 06:23 | Day surgery (SDC) | payer OTHER, SELFPAY | END 2024-06-27 15:20 | disposition home or self-care (01) | LOC: GI 06:23 | PROVIDERS: ATTENDING PHYSICIAN Internal Medicine Gastroenterology | DX: Z12.11 Encounter for screening for malignant neoplasm of colon (principal); K64.0 First degree hemorrhoids; K57.30 Diverticulosis of large intestine without perforation or abscess without bleeding; D12.5 Benign neoplasm of sigmoid colon; K63.5 Polyp of colon; Z86.0100 Personal history of colon polyps, unspecified | CPT/HCPCS: 45385; 88305 ==

== ENCOUNTER → 2024-07-20 12:03 | Outpatient (REF) | payer OTHER, SELFPAY ==
[2024-07-20 13:02] LABS: % Basophils 3.8 % (0-2); % Eosinophils 2.6 % (0-6); % Immature Granulocytes 3.3 % (0-0.5); % Lymphocytes 18.2 % (20.5-51.1); % Monocytes 7.9 % (1.7-9.3); % Neutrophils 64.2 % (42.2-75.2); Absolute Basophils 0.2 10^3/uL (0-0.2); Absolute Eosinophils 0.1 10^3/uL (0-0.7); Absolute Immature Granulocytes 0.1 10^3/uL (0-0.05); Absolute Lymphocytes 0.8 10^3/uL (1.2-3.4); Absolute Monocytes 0.3 10^3/uL (0.1-0.6); Absolute Neutrophils 2.7 10^3/uL (1.4-6.5); Hematocrit 38.9 % (39.0-52.0); Hemoglobin 13.8 g/dL (13.0-18.0); Mean Corp Hgb Conc. 35.5 g/dL (33.0-37.0); Mean Corpuscular Hgb 33.3 pg (27.0-31.0); Mean Platelet Volume 8.1 fL (7.4-10.4); Nucleated Red Blood Cells % 0 % (-); Platelet Count 113 10^3/uL (130-400); Red Blood Cell Count 4.14 10^6/uL (4.70-6.10); Red Cell Dist. Width 14.1 % (11.5-14.5); White Blood Cell Count 4.2 10^3/uL (4.8-10.8)
[2024-07-20 14:23] LABS: ALT (SGPT) 25 U/L (0-50); AST (SGOT) 26 U/L (17-59); Albumin 4.3 g/dl (3.5-5.0); Alkaline Phosphatase 90 U/L (38-126); Blood Urea Nitrogen 16 mg/dl (9-20); Calcium 9.2 mg/dl (8.4-10.2); Carbon Dioxide 24 mmol/L (22-30); Chloride 107 mmol/L (98-107); Glucose 104 mg/dl (70-99); Potassium 3.3 mmol/L (3.5-5.1); Sodium 139 mmol/L (135-145); Total Bilirubin 0.9 mg/dl (0.2-1.3); Total Protein 6.2 g/dl (6.3-8.2); eGFR > 60.00
[2024-07-20 16:02] LABS: LDH 206 U/L (120-246)
[2024-07-20 23:21] LABS: IgG 599 mg/dl (700-1600)
[2024-07-23 07:26] LABS: IgA <2 mg/dL (68-408)
== END ==
LOC: REG 12:03
PROVIDERS: ATTENDING PHYSICIAN Internal Medicine Hematology & Oncology; FAMILY PHYSICIAN Family Medicine
DX: C82.98 Follicular lymphoma, unspecified, lymph nodes of multiple sites (principal); D70.9 Neutropenia, unspecified; D83.8 Other common variable immunodeficiencies
CPT/HCPCS: 36415; 80053; 82784; 83615; 85025

== ENCOUNTER → 2024-08-24 12:11 | Outpatient (REF) | payer OTHER, SELFPAY ==
[2024-08-24 13:26] LABS: Hematocrit 40.0 % (39.0-52.0); Hemoglobin 14.1 g/dL (13.0-18.0); Mean Corp Hgb Conc. 35.3 g/dL (33.0-37.0); Mean Corpuscular Volume 92.8 fL (80.0-94.0); Nucleated Red Blood Cells % 0 % (-); Platelet Count 118 10^3/uL (130-400); Red Cell Dist. Width 14.6 % (11.5-14.5)
[2024-08-24 13:49] LABS: ALT (SGPT) 21 U/L (0-50); AST (SGOT) 22 U/L (17-59); Albumin 4.3 g/dl (3.5-5.0); Alkaline Phosphatase 85 U/L (38-126); Blood Urea Nitrogen 14 mg/dl (9-20); Calcium 9.0 mg/dl (8.4-10.2); Carbon Dioxide 26 mmol/L (22-30); Chloride 105 mmol/L (98-107); Glucose 108 mg/dl (70-99); LDH 186 U/L (120-246); Potassium 3.1 mmol/L (3.5-5.1); Sodium 137 mmol/L (135-145); Total Protein 6.3 g/dl (6.3-8.2); eGFR > 60.00
== END ==
LOC: REG 12:11
PROVIDERS: ATTENDING PHYSICIAN Internal Medicine Hematology & Oncology; FAMILY PHYSICIAN Family Medicine
DX: C82.98 Follicular lymphoma, unspecified, lymph nodes of multiple sites (principal); D70.9 Neutropenia, unspecified; D83.8 Other common variable immunodeficiencies
CPT/HCPCS: 36415; 80053; 82784; 83615; 85025

== ENCOUNTER → 2024-09-22 11:26 | Outpatient (REF) | payer OTHER, SELFPAY ==
[2024-09-22 12:32] LABS: Hematocrit 38.2 % (39.0-52.0); Hemoglobin 13.5 g/dL (13.0-18.0); Mean Corp Hgb Conc. 35.3 g/dL (33.0-37.0); Mean Corpuscular Volume 95.5 fL (80.0-94.0); Nucleated Red Blood Cells % 0 % (-); Platelet Count 121 10^3/uL (130-400); Red Cell Dist. Width 15.7 % (11.5-14.5)
[2024-09-22 12:54] LABS: ALT (SGPT) 32 U/L (0-50); AST (SGOT) 27 U/L (17-59); Albumin 4.2 g/dl (3.5-5.0); Alkaline Phosphatase 109 U/L (38-126); Blood Urea Nitrogen 15 mg/dl (9-20); Calcium 9.0 mg/dl (8.4-10.2); Carbon Dioxide 28 mmol/L (22-30); Chloride 102 mmol/L (98-107); Glucose 108 mg/dl (70-99); LDH 201 U/L (120-246); Potassium 3.2 mmol/L (3.5-5.1); Sodium 138 mmol/L (135-145); Total Protein 6.1 g/dl (6.3-8.2); eGFR > 60.00
== END ==
LOC: REG 11:26
PROVIDERS: ATTENDING PHYSICIAN Internal Medicine Hematology & Oncology; FAMILY PHYSICIAN Family Medicine
DX: C82.98 Follicular lymphoma, unspecified, lymph nodes of multiple sites (principal); D70.9 Neutropenia, unspecified; D83.8 Other common variable immunodeficiencies
CPT/HCPCS: 36415; 80053; 82784; 83615; 85025

== ENCOUNTER → 2024-10-20 11:46 | Outpatient (REF) | payer OTHER, SELFPAY ==
[2024-10-20 12:51] LABS: Hematocrit 38.0 % (39.0-52.0); Hemoglobin 13.5 g/dL (13.0-18.0); Mean Corp Hgb Conc. 35.5 g/dL (33.0-37.0); Mean Corpuscular Volume 96.2 fL (80.0-94.0); Nucleated Red Blood Cells % 0 % (-); Platelet Count 145 10^3/uL (130-400); Red Cell Dist. Width 14.6 % (11.5-14.5)
[2024-10-20 13:19] LABS: ALT (SGPT) 25 U/L (0-50); AST (SGOT) 25 U/L (17-59); Albumin 4.2 g/dl (3.5-5.0); Alkaline Phosphatase 86 U/L (38-126); Blood Urea Nitrogen 15 mg/dl (9-20); Calcium 9.6 mg/dl (8.4-10.2); Carbon Dioxide 29 mmol/L (22-30); Chloride 102 mmol/L (98-107); Glucose 109 mg/dl (70-99); Potassium 2.9 mmol/L (3.5-5.1); Sodium 138 mmol/L (135-145); Total Protein 6.1 g/dl (6.3-8.2); eGFR > 60.00
[2024-10-20 13:43] LABS: LDH 220 U/L (120-246)
== END ==
LOC: REG 11:46
PROVIDERS: ATTENDING PHYSICIAN Internal Medicine Hematology & Oncology; FAMILY PHYSICIAN Family Medicine
DX: C82.98 Follicular lymphoma, unspecified, lymph nodes of multiple sites (principal); D70.9 Neutropenia, unspecified; D83.8 Other common variable immunodeficiencies
CPT/HCPCS: 36415; 80053; 82784; 83615; 85025

== ENCOUNTER → 2024-11-12 11:36 | Outpatient (REF) | payer OTHER, SELFPAY ==
[2024-11-12 12:39] LABS: Hematocrit 39.5 % (39.0-52.0); Hemoglobin 14.2 g/dL (13.0-18.0); Mean Corp Hgb Conc. 35.9 g/dL (33.0-37.0); Mean Corpuscular Volume 97.3 fL (80.0-94.0); Nucleated Red Blood Cells % 0 % (-); Platelet Count 138 10^3/uL (130-400); Red Cell Dist. Width 13.2 % (11.5-14.5)
[2024-11-12 13:14] LABS: ALT (SGPT) 38 U/L (0-50); AST (SGOT) 25 U/L (17-59); Albumin 4.4 g/dl (3.5-5.0); Alkaline Phosphatase 127 U/L (38-126); Blood Urea Nitrogen 17 mg/dl (9-20); Calcium 9.6 mg/dl (8.4-10.2); Carbon Dioxide 26 mmol/L (22-30); Chloride 103 mmol/L (98-107); Glucose 104 mg/dl (70-99); LDH 172 U/L (120-246); Potassium 3.8 mmol/L (3.5-5.1); Sodium 135 mmol/L (135-145); Total Protein 6.5 g/dl (6.3-8.2); eGFR > 60.00
== END ==
LOC: REG 11:36
PROVIDERS: ATTENDING PHYSICIAN Internal Medicine Hematology & Oncology; FAMILY PHYSICIAN Family Medicine
DX: C82.98 Follicular lymphoma, unspecified, lymph nodes of multiple sites (principal); D70.9 Neutropenia, unspecified; D83.8 Other common variable immunodeficiencies
CPT/HCPCS: 36415; 80053; 82784; 83615; 83993; 85025; 87328; 87329

== ENCOUNTER → 2024-12-15 11:25 | Outpatient (REF) | payer OTHER, SELFPAY ==
[2024-12-15 12:10] LABS: Hematocrit 43.1 % (39.0-52.0); Hemoglobin 15.0 g/dL (13.0-18.0); Mean Corp Hgb Conc. 34.8 g/dL (33.0-37.0); Mean Corpuscular Volume 98.0 fL (80.0-94.0); Nucleated Red Blood Cells % 0 % (-); Platelet Count 133 10^3/uL (130-400); Red Cell Dist. Width 14.6 % (11.5-14.5)
[2024-12-15 13:09] LABS: ALT (SGPT) 37 U/L (0-50); AST (SGOT) 25 U/L (17-59); Albumin 4.6 g/dl (3.5-5.0); Alkaline Phosphatase 95 U/L (38-126); Blood Urea Nitrogen 15 mg/dl (9-20); Calcium 9.4 mg/dl (8.4-10.2); Carbon Dioxide 25 mmol/L (22-30); Chloride 103 mmol/L (98-107); Glucose 104 mg/dl (70-99); HDL Cholesterol 70 mg/dl; LDH 171 U/L (120-246); LDL Cholesterol, Calculated 90 mg/dl; Potassium 3.6 mmol/L (3.5-5.1); Sodium 134 mmol/L (135-145); Total Protein 6.7 g/dl (6.3-8.2); Very Low Density Lipoprotein 21 mg/dl (0-30); eGFR > 60.00
== END ==
LOC: REG 11:25
PROVIDERS: ATTENDING PHYSICIAN Internal Medicine; FAMILY PHYSICIAN Family Medicine; OTHER PHYSICIAN Internal Medicine Hematology & Oncology
DX: C82.98 Follicular lymphoma, unspecified, lymph nodes of multiple sites (principal); D70.9 Neutropenia, unspecified; D83.8 Other common variable immunodeficiencies; I10 Essential (primary) hypertension; E66.3 Overweight
CPT/HCPCS: 36415; 80053; 80061; 82784; 83615; 85025

== ENCOUNTER → 2025-02-08 10:58 | Outpatient (REF) | payer OTHER, SELFPAY ==
[2025-02-08 12:16] LABS: Hematocrit 40.1 % (39.0-52.0); Hemoglobin 14.4 g/dL (13.0-18.0); Mean Corp Hgb Conc. 35.9 g/dL (33.0-37.0); Mean Corpuscular Volume 95.9 fL (80.0-94.0); Nucleated Red Blood Cells % 0 % (-); Platelet Count 140 10^3/uL (130-400); Red Cell Dist. Width 14.2 % (11.5-14.5)
[2025-02-08 13:01] LABS: ALT (SGPT) 43 U/L (0-50); AST (SGOT) 32 U/L (17-59); Albumin 4.4 g/dl (3.5-5.0); Alkaline Phosphatase 111 U/L (38-126); Blood Urea Nitrogen 13 mg/dl (9-20); Calcium 9.6 mg/dl (8.4-10.2); Carbon Dioxide 26 mmol/L (22-30); Chloride 102 mmol/L (98-107); Glucose 101 mg/dl (70-99); LDH 180 U/L (120-246); Potassium 3.7 mmol/L (3.5-5.1); Sodium 136 mmol/L (135-145); Total Protein 6.6 g/dl (6.3-8.2); eGFR > 60.00
== END ==
LOC: REG 10:58
PROVIDERS: ATTENDING PHYSICIAN Internal Medicine Hematology & Oncology; FAMILY PHYSICIAN Family Medicine
DX: C82.98 Follicular lymphoma, unspecified, lymph nodes of multiple sites (principal); D70.9 Neutropenia, unspecified; D83.8 Other common variable immunodeficiencies; I89.0 Lymphedema, not elsewhere classified
CPT/HCPCS: 36415; 80053; 82784; 83615; 85025